=== PATIENT | female | born 2000 | race Caucasian/White ===

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

== ENCOUNTER 2021-05-27 14:38 | Emergency (ER) | payer SELFPAY ==
[~2021-05-27] VITALS: Ht 165.1 cm; Wt 75.0 kg
[2021-05-27] MEDS ORDERED: LORazepam 0.5 MG (ATIVAN) TABLET PO STA (15:12)
--- NOTE | 2021-05-27 15:35 | ED Neurological Problem ---
General Chief Complaint: General Problems/Pain Stated Complaint: TREMORS/NUMBNESS Nursing Triage Note: Pt ambulatory into ER with Phonic Tics x20 Minutes, and intermittent Tingling and Numbness in hands x5 days. Pt is making a dog like bark noise, stuttering, and has body tics as well. Pt has no history of this. Source: patient, family (mom) Exam Limitations: no limitations History of Present Illness Date Seen by Provider: May 27, 2021 Time Seen by Provider: 15:10 Initial Comments Patient to the ER with mom and chief complaint about half an hour prior to her arrival she started experiencing bilateral upper arm extremity tingling numbness in her hands, tremoring, barking tics and spasming of her abdomen wall. Patient states she started Pristiq about 4 months ago and was on the name brand for about a month and for the past 3 months has been tolerating the generic. She says while she was on it she would get 1 or 2 little spasmodic tics like this day but now it is constant, rhythmic, nonsuppressible. She says it is very tiring. For the past couple weeks she has had problems with hives due to an unknown allergen but she suspects it might be her detergent at home. She has been taking a course of prednisone as well as Benadryl several times a day. She took a dose this morning of each. Patient denies any fever chills nausea vomiting diarrhea chest pain abdominal pain. She says it is very tiring constantly spasming with this. Allergies and Home Medications Allergies Coded Allergies: Penicillins (Unverified Allergy, Mild, 07/29/09) Home Medications Cephalexin 500 Mg Tablet, 500 MG PO TID Prescribed by: DENNIS SUE on 05/11/19 4859 Patient Home Medication List Home Medication List Reviewed: Yes Review of Systems Review of Systems Constitutional: No chills, No fever, No malaise, No weakness Eyes: Denies Blindness, Denies Blurred Vision, Denies Drainage Ears, Nose, Mouth, Throat: denies ear pain, denies ear discharge Respiratory: No cough, No dyspnea on exertion Cardiovascular: No chest pain, No palpitations Gastrointestinal: No abdominal pain, No constipation, No diarrhea, No nausea Genitourinary: No discharge, No dysuria Musculoskeletal: No back pain, No joint pain Skin: No pruritus, No rash All Other Systems Reviewed Negative Unless Noted: Yes Past Ntqrzfm-Fmxvic-Vyvqoq Hx Patient Social History Tobacco Use?: No Use of E-Cig and/or Vaping dev: Yes E-Cig or Vaping type used: Nicotine Use of E-Cig and/or Vaping David: Current Someday User Substance use?: No Alcohol Use?: No Pt feels they are or have been: No Immunizations Up To Date PED Vaccines UTD: Yes Influenza Vaccine Up-to-Date: No; Not Current Seasonal Allergies Seasonal Allergies: No Past Medical History Surgeries: Yes (FACIAL SURG) Tonsillectomy Respiratory: No Cardiac: No Neurological: No Reproductive Disorders: No Genitourinary: No Gastrointestinal: No Musculoskeletal: No Endocrine: No HEENT: No Cancer: No Psychosocial: No Integumentary: No Blood Disorders: No Family Medical History No Pertinent Family Hx Physical Exam Vital Signs Vital Signs - First Documented 05/27/21 14:43 Temp 35.6 Pulse 126 Resp 24 B/P (MAP) 157/115 (129) Pulse Ox 98 O2 Delivery Room Air Capillary Refill : Less Than 3 Seconds Height, Weight, BMI Height: 5'7.00" Weight: 170lbs. oz. 77.545093dh; 27.00 BMI Method: General Appearance: WD/WN, mild distress HEENT: PERRL/EOMI, pharynx normal Neck: full range of motion, normal inspection Respiratory: lungs clear, normal breath sounds, no respiratory distress, no accessory muscle use Cardiovascular: normal peripheral pulses, regular rate, rhythm, no edema, no JVD, no murmur Peripheral Pulses: 2+ Radial Pulses (R), 2+ Radial Pulses (L) Gastrointestinal: normal bowel sounds, non tender, soft Neurologic/Psychiatric: alert, oriented x 3, other (Mildly anxious affect, smiling, cooperative good eye contact. Patient has some spasmodic hiccuping sounds that are constant, almost rhythmic, suppressible with breathing maneuvers but not voluntarily.) Crainal Nerves: normal hearing, normal speech, PERRL Coordination/Gait: normal gait Motor/Sensory: no motor deficit, no sensory deficit, other (Endorses paresthesias but has an intact sensation bilateral upper and lower extremities) Reflexes: 1+ Tricep (R), 1+ Tricep (L); 2+ Knee (R), 2+ Knee (L), 2+ Ankle (R), 2+ Ankle (L) Skin: normal color, warm/dry Progress/Results/Core Measures Results/Orders Lab Results Laboratory Tests Test 05/27/21 15:36 Range/Units White Blood Count 8.3 4.3-11.0 10^3/uL Red Blood Count 4.53 3.80-5.11 10^6/uL Hemoglobin 12.8 11.5-16.0 g/dL Hematocrit 38 35-52 % Mean Corpuscular Volume 85 80-99 fL Mean Corpuscular Hemoglobin 28 25-34 pg Mean Corpuscular Hemoglobin Concent 33 32-36 g/dL Red Cell Distribution Width 12.5 10.0-14.5 % Platelet Count 237 130-400 10^3/uL Mean Platelet Volume 9.1 9.0-12.2 fL Immature Granulocyte % (Auto) 1 % Neutrophils (%) (Auto) 85 H 42-75 % Lymphocytes (%) (Auto) 11 L 12-44 % Monocytes (%) (Auto) 4 0-12 % Eosinophils (%) (Auto) 0 0-10 % Basophils (%) (Auto) 0 0-10 % Neutrophils # (Auto) 7.1 1.8-7.8 X 10^3 Lymphocytes # (Auto) 0.9 L 1.0-4.0 X 10^3 Monocytes # (Auto) 0.3 0.0-1.0 X 10^3 Eosinophils # (Auto) 0.0 0.0-0.3 10^3/uL Basophils # (Auto) 0.0 0.0-0.1 10^3/uL Immature Granulocyte # (Auto) 0.0 0.0-0.1 10^3/uL Sodium Level 144 135-145 MMOL/L Potassium Level 3.9 3.6-5.0 MMOL/L Chloride Level 108 H 98-107 MMOL/L Carbon Dioxide Level 20 L 21-32 MMOL/L Anion Gap 16 H 5-14 MMOL/L Blood Urea Nitrogen 10 7-18 MG/DL Creatinine 0.72 0.60-1.30 MG/DL Estimat Glomerular Filtration Rate 104 BUN/Creatinine Ratio 14 Glucose Level 138 H 70-105 MG/DL Calcium Level 9.3 8.5-10.1 MG/DL Corrected Calcium 9.1 8.5-10.1 MG/DL Total Bilirubin 0.3 0.1-1.0 MG/DL Aspartate Amino Transf (AST/SGOT) 15 5-34 U/L Alanine Aminotransferase (ALT/SGPT) 13 0-55 U/L Alkaline Phosphatase 61 40-136 U/L Total Protein 7.7 6.4-8.2 GM/DL Albumin 4.3 3.2-4.5 GM/DL Serum Test, Qualitative NEGATIVE NEGATIVE My Orders Orders - MONTY MEDRANO Lorazepam Tablet (Ativan Tablet) (05/27/21 15:12) Cbc With Automated Diff (05/27/21 15:12) Comprehensive Metabolic Panel (05/27/21 15:12) Hcg,Qualitative Serum (05/27/21 15:12) Chest Pa/Lat (2 View) (05/27/21 15:12) Vital Signs/I&O 05/27/21 14:43 Temp 35.6 Pulse 126 Resp 24 B/P (MAP) 157/115 (129) Pulse Ox 98 O2 Delivery Room Air Blood Pressure Mean: 129 Progress Progress Note #1: Time: 15:39 Progress Note 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 It does calm down when we are testing her eyes and she is focusing on a neurologic exam and returns immediately thereafter. He does not seem to be voluntarily suppressible. It could be consistent with Leeuwenhoek disease or belly dancers dyskinesia. It could be theorized that the Pristiq and recent steroids could be culprits. We will pro bably start tapering her off of that medication. We have also encouraged her to stop taking the Benadryl and steroid. We will give her a milligram of Ativan p.o. and check some basic labs looking for electrolyte disorders, hyper uremia etc. We have reassured her that often these spontaneous tic/movement disorders will resolve just spontaneously over weeks to months. Plan to get a chest x-ray to make sure there is not any obvious radiopaque involvement anywhere along the pathway of the costophrenic nerve. Progress Note #2: Time: 17:03 Progress Note Patient is much more calm and no longer insonating although still having some occasional rhythmic, although didactic instructor diaphragmatic spasms/myoclonus. She says she feels much better. Still mentating normally and has a normal neurologic exam. We discussed with her that we going to give her a prescription for Pristiq 25 mg daily for the next week and then off and to stop taking the steroid. She can still take her Fatuma once or twice a day in addition to Benadryl if her hives return. The Ativan seems to help so were going to send her out with some Ativan tablets and have her follow-up with Yvonne the psychiatrist at [facility] and her primary care doctor. If her symptoms persist for more than 1 to 2 weeks then we have encouraged her to follow-up with a neurologist to be set up through her primary care office. Diagnostic Imaging Diagonstic Imaging: Xray Plain Films/CT/US/NM/MRI: chest Comments NAME: LESTER VALDEZ [facility] REC#: [id number] PT STATUS: REG ER : 2001 PHYSICIAN: MONTY MEDRANO MD ADMIT DATE: 05/27/21/ER Draft Date of Exam:05/27/21 CHEST PA/LAT (2 VIEW) EXAMINATION: Chest 2 view. HISTORY: Diaphragm spasm. COMPARISON: 08/01/2009. FINDINGS: Heart size and pulmonary vasculature are normal. The lungs are clear without consolidation, pleural effusion or pneumothorax. The osseous structures are intact. IMPRESSION: No acute radiographic abnormality in the chest. 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 Decision time for Depature: 17:00 Referrals: KURT GATES MD (PCP/Family) Primary Care Physician Patient Instructions: NO INSTRUCTIONS GIVEN Add. 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 This is a rare, involuntary spasming of the muscles of your diaphragm/abdominal wall. It seems to relax with medicines such as Ativan and will typically resolve spontaneously on its own in a few weeks. Often the source of the problem is never discovered. If it persists for more than a week or 2 then I would recommend follow-up with a neurologist. Follow-up with your primary care doctor in the next week. Start taking Pristiq 25 mg daily for the next week and then go off of it. Stop taking the prednisone. You may continue taking your Fatuma once or twice a day as necessary for itchy hives. You may take 1 tablet of Benadryl every 6 hours as necessary for breakthrough itching although combined with Ativan this may cause more drowsiness. Do not drink alcohol with Ativan. Do not attempt to drive or operate heavy machinery while under the influence of Ativan as it causes drowsiness and may result in a DUI, or worse a wreck. You may take 1/2 to 1 milligram of Ativan every 8 hours as necessary to keep the symptoms under control. Work with your psychiatry team to determine if Pristiq is part of the problem and if you can restart it or a different medication later on. All discharge instructions reviewed with patient and/or family. Voiced understanding. Scripts Desvenlafaxine Succinate (Pristiq ER) 25 Mg Tab.er.24h 25 MG PO DAILY for 7 Days, #7 TAB 0 Refills Prov: MONTY MEDRANO 05/27/21 Lorazepam (Ativan) 0.5 Mg Tablet 0.5-1 MG PO TID PRN for SPASMS for 7 Days, #35 TAB 0 Refills Prov: MONTY MEDRANO 05/27/21 Work/School Note: Work Release Form Date Seen in the Emergency Department: May 27, 2021 Return to Work: May 30, 2021 Restrictions: No Restrictions Copy Copies To 1: LUPE CARRION TITUS J May 27, 2021 15:35
[2021-05-27 15:45] LABS: BASOPHILS % (AUTO) 0 % (0-10); EOSINOPHILS % (AUTO) 0 % (0-10); HEMATOCRIT 38 % (35-52); HEMOGLOBIN 12.8 g/dL (11.5-16.0); LYMPHOCYTES # (AUTO) 0.9 X 10^3 (1.0-4.0); LYMPHOCYTES % (AUTO) 11 % (12-44); MEAN CORPUSCULAR HEMOGLOBIN 28 pg (25-34); MEAN CORPUSCULAR HGB CONC 33 g/dL (32-36); MEAN CORPUSCULAR VOLUME 85 fL (80-99); MEAN PLATELET VOLUME 9.1 fL (9.0-12.2); MONOCYTES # (AUTO) 0.3 X 10^3 (0.0-1.0); MONOCYTES % (AUTO) 4 % (0-12); NEUTROPHILS # (AUTO) 7.1 X 10^3 (1.8-7.8); NEUTROPHILS % (AUTO) 85 % (42-75); PLATELET COUNT 237 10^3/uL (130-400); WHITE BLOOD COUNT 8.3 10^3/uL (4.3-11.0)
--- NOTE | 2021-05-27 15:53 | Diagnostic Imaging Report ---
EXAMINATION: Chest 2 view. HISTORY: Diaphragm spasm. COMPARISON: 08/01/2009. FINDINGS: Heart size and pulmonary vasculature are normal. The lungs are clear without consolidation, pleural effusion or pneumothorax. The osseous structures are intact. IMPRESSION: No acute radiographic abnormality in the chest. Dictated by: Dictated on workstation # [id number]
[2021-05-27 15:57] LABS: ALBUMIN 4.3 GM/DL (3.2-4.5); POTASSIUM 3.9 MMOL/L (3.6-5.0)
[2021-05-27 15:58] LABS: CALCIUM 9.3 MG/DL (8.5-10.1)
[2021-05-27 16:00] LABS: TOTAL PROTEIN 7.7 GM/DL (6.4-8.2)
[2021-05-27 16:02] LABS: BILIRUBIN,TOTAL 0.3 MG/DL (0.1-1.0)
[2021-05-27 16:03] LABS: CREATININE SERUM 0.72 MG/DL (0.60-1.30)
[2021-05-27] MEDS ORDERED: DESV25TA PO (17:13)
[2021-05-27] MEDS ORDERED: LORA-404 PO (17:13)
[2021-05-27 17:27] VITALS: BP 135/80
== END 2021-05-27 17:28 | disposition home or self-care (01) ==
LOC: EDUNIT# 14:38 → ER 14:40
DX: R06.6 Hiccough (principal); G24.9 Dystonia, unspecified; F17.200 Nicotine dependence, unspecified, uncomplicated
CPT/HCPCS: 36415; 71046; 80053; 84703; 85025

== ENCOUNTER 2022-01-01 23:20 | Emergency (ER) | payer OTHER ==
[~2022-01-01] VITALS: Ht 170.1 cm; Wt 81.6 kg
[~2022-01-01 23:20] MED LIST changes: +DESV25TA PO; +LORA-404 PO
[2022-01-01] MEDS ORDERED: EPINEPHrine INJECTION 1 MG/ML AMP ONE (23:32)
--- NOTE | 2022-01-01 23:40 | ED General ---
General Stated Complaint: ALERGIC RXN,THROAT & FACE SWOLLEN Source of Information: Patient Exam Limitations: No Limitations History of Present Illness Date Seen by Provider: Jan 01, 2022 Time Seen by Provider: 23:48 Initial Comments 21-year-old female with past medical history of chronic urticaria for the past 7 months coming in due to allergic reaction. She says about an hour prior to arrival she felt her lips and face swelling and felt like her throat was tightening. Took a Benadryl and then came to the emergency department. She takes 2 Benadryl every morning and is seeing someone to try to figure out what going on with the urticaria. So far is unknown. She is never had an allergic reaction like this. She had several today and did not really change much from her typical routine. Denies any chest pain, abdominal pain, weakness, numbness, headache, vision changes, or any other concerns. She is currently on her period. Allergies and Home Medications Allergies Coded Allergies: Penicillins (Unverified Allergy, Mild, 07/29/09) Patient Home Medication List Home Medication List Reviewed: Yes Cephalexin (Cephalexin) 500 Mg Tablet, 500 MG PO TID Prescribed by: DENNIS SUE on 05/11/192140 Cetirizine HCl (Cetirizine HCl) 10 Mg Tablet, 10 MG PO DAILY Prescribed by: JOSE ALVARENGA on 01/02/22 0514 Desvenlafaxine Succinate (Pristiq ER) 25 Mg Tab.er.24h, 25 MG PO DAILY Prescribed by: MONTY MEDRANO on 05/27/21 171 Epinephrine (Epipen 2-Rafita) 0.3 Mg/0.3 Ml Auto.injct, 0.3 MG IJ Q15M PRN for anaphylaxis Prescribed by: JOSE ALVARENGA on 01/02/22 0505 Famotidine (Pepcid) 20 Mg Tablet, 20 MG PO DAILY Prescribed by: JOSE ALVARENGA on 01/02/22 0514 Lorazepam (Ativan) 0.5 Mg Tablet, 0.5-1 MG PO TID PRN for SPASMS Prescribed by: MONTY MEDRANO on 05/27/21 1714 Review of Systems Review of Systems Constitutional: No chills, No fever EENTM: throat swelling; No blurred vision Respiratory: No cough; short of breath Cardiovascular: No chest pain Gastrointestinal: nausea Genitourinary: no symptoms reported Musculoskeletal: no symptoms reported Skin: rash Psychiatric/Neurological: No Symptoms Reported Hematologic/Lymphatic: No Symptoms Reported Immunological/Allergic: no symptoms reported All Other Systems Reviewed Negative Unless Noted: Yes Past Susbllr-Lvmjro-Pohjnw Hx Patient Social History Substance use?: No Immunizations Up To Date PED Vaccines UTD: Yes Seasonal Allergies Seasonal Allergies: No Past Medical History Surgeries: Yes (FACIAL SURG) Tonsillectomy Respiratory: No Cardiac: No Neurological: No Reproductive Disorders: No Genitourinary: No Gastrointestinal: No Musculoskeletal: No Endocrine: No HEENT: No Cancer: No Psychosocial: No Integumentary: No Blood Disorders: No Family Medical History No Pertinent Family Hx Physical Exam Vital Signs Vital Signs - First Documented 01/01/22 23:30 Temp 36.9 Pulse 86 Resp 20 B/P (MAP) 141/96 (111) Pulse Ox 99 Capillary Refill : Height, Weight, BMI Height: 5'7.00" Weight: 170lbs. oz. 77.236550ln; 27.00 BMI Method: General Appearance: Other (Lips and face swollen) Eyes: Right Eye Other (Right eye with periorbital edema) HEENT: PERRL/EOMI, Normal ENT Inspection, Pharynx Normal Neck: Full Range of Motion, Normal Inspection, Non Tender, Supple Respiratory: Chest Non Tender, Lungs Clear, Normal Breath Sounds, No Accessory Muscle Use, No Respiratory Distress Cardiovascular: Regular Rate, Rhythm, No Edema, Normal Peripheral Pulses Gastrointestinal: Normal Bowel Sounds, Non Tender, Soft; No Distended, No Guarding Back: No CVA Tenderness Extremity: Normal Capillary Refill, Normal Range of Motion, Non Tender, No Calf Tenderness, No Pedal Edema, Other (Urticaria) Neurologic/Psychiatric: Alert, No Motor/Sensory Deficits, Normal Mood/Affect Skin: Warm/Dry, Other (Urticaria across her chest and extremities) Lymphatic: No Adenopathy Progress/Results/Core Measures Suspected Sepsis SIRS Temperature: Pulse: Respiratory Rate: Blood Pressure / Mean: Results/Orders My Orders Orders - JOSE ALVARENGA MD Epinephrine 1 Mg Injection (Adrenalin I (01/01/22 23:32) Epinephrine 1 Mg Injection (Adrenalin I (01/01/22 23:45) Lactated Ringers (Lr 1000 Ml Iv Solution (01/01/22 23:45) Diphenhydramine Injection (Benadryl Inje (01/01/22 23:45) Dexamethasone Injection (Decadron Injec (01/01/22 23:34) Famotidine Injection (Pepcid Injection) (01/01/22 23:45) Epinephrine 1 Mg Injection (Adrenalin I (01/01/22 23:56) Ns (Ivpb) (Sodium C... W/Epinephrine 1 (01/02/22 00:10) Chest 1 View, Ap/Pa Only (01/02/22 00:15) Medications Given in ED Current Medications Medications Dose Ordered Sig/Zurdo Route Start Time Stop Time Status Last Admin Dose Admin Epinephrine HCl 0.3 mg ONCE ONCE IM 01/01/22 23:45 01/01/22 23:46 DC 01/01/22 23:38 0.3 MG Famotidine 20 mg ONCE ONCE IVP 01/01/22 23:45 01/01/22 23:46 DC 01/01/22 23:50 20 MG Vital Signs/I&O 01/01/22 01/02/22 23:30 05:26 Temp 36.9 Pulse 86 91 Resp 20 16 B/P (MAP) 141/96 (111) 116/68 Pulse Ox 99 98 Capillary Refill : Progress Note : Progress Note 21-year-old female with above history coming in due to allergic reaction. ABCs are intact although tenuous. She does have some facial swelling with some voice changes, but clear lung sounds. She was immediately given an IM injection of epinephrine which did help with her urticaria. This was repeated after about 15 minutes given she was feeling somewhat throat tightness. Symptoms me seem to improve but she still feeling some so started on an epinephrine drip. She was also given Decadron, had already taken Benadryl, Pepcid, and IV fluids. I frequently reassessed her airway, and she is tolerating her secretions, and is still talking, and says things seem to have stabilized. For now we will hold off on intubating her. The plan was to admit the patient to the intensive care unit, but every time I reevaluated her she seemed to be rapidly improving more. I discussed with her b ring her into the hospital for observation versus watching her for roughly 6 hours and if she continues to appear well, discharging her from the emergency department. She preferred discharge if possible. I frequently reassessed her, airway continued to improve, eventually her voice completely came back to normal, urticaria went away, and the facial swelling significantly lessened. Last dose of epinephrine was greater than 5 hours ago she has not required any other medications since then. I believe she is stable for discharge with outpatient follow-up. She was sent home with strict return precautions Critical Care Note Critical Care Start Time: 00:10 Stop Time: 02:35 Total Time (minutes) 145 Progress Patient having anaphylaxis requiring repeat doses of epinephrine IM and required frequent reassessment in which I was monitoring her airway and hemodynamics. Departure Impression Primary Impression: Anaphylaxis Qualified Codes: T78.2XXA - Anaphylactic shock, unspecified, initial encounter Disposition: HOME, SELF-CARE Condition: Improved Admissions Decision to Admit/Date: Jan 02, 2022 Time/Decision to Admit Time: 00:15 Departure-Patient Inst. Decision time for Depature: 05:30 Referrals: KURT GATES MD (PCP/Family) Primary Care Physician Patient Instructions: Anaphylaxis Add. Discharge Instructions: You were seen in the emergency department for an allergic reaction that was very severe called anaphylaxis. Sometimes there can be a rebound reaction to this later on. I wrote a prescription for EpiPen's which you should fill. If you feel like your throat is closing, your wheezing, or you have any difficulty breathing and I want you to use the EpiPen and call 911 [address] you to the ER. Please follow-up with your regular doctor to get a referral to an facility maintenance technician. I also sent a prescription for cetirizine (allergy pill in place of the benadryl that is less sedating and tends to do well for hives) and pepcid (also can help with hives). Scripts Famotidine (Pepcid) 20 Mg Tablet 20 MG PO DAILY for 30 Days, #30 TAB Prov: JOSE ALVARENGA MD 01/02/22 Cetirizine HCl (Cetirizine HCl) 10 Mg Tablet 10 MG PO DAILY for 30 Days, #30 TAB Prov: JOSE ALVARENGA MD 01/02/22 Epinephrine (Epipen 2-Rafita) 0.3 Mg/0.3 Ml Auto.injct 0.3 MG IJ Q15M PRN for anaphylaxis, #2 UNITS Prov: JOSE ALVARENGA MD 01/02/22 Work/School Note: School/Childcare Release, Date Seen in the Emergency Department: Jan 02, 2022 Time Dismissed from Emergency Department: 05:06 Return to School: Jan 03, 2022 Restrictions: No Restrictions Work Release Form Date Seen in the Emergency Department: Jan 01, 2022 Return to Work: Jan 03, 2022 Restrictions: No Restrictions JOSE ALVARENGA MD Jan 01, 2022 23:39
[2022-01-01] MEDS ORDERED: LACTATED RINGERS 1,000 ML IV SCH (23:45)
[2022-01-01] MEDS ORDERED: FAMOTIDINE 20MG/2ML IV (PEPCID) IVP ONE (23:45)
[2022-01-01] MEDS ORDERED: EPINEPHrine INJECTION 1 MG/ML AMP IM ONE (23:45)
[2022-01-01] MEDS ORDERED: diphenhydrAMINE 50 MG/ML INJ (BENADRYL) IVP ONE (23:45)
[2022-01-01] MEDS ORDERED: EPINEPHrine INJECTION 1 MG/ML AMP IM STA (23:56)
[2022-01-02] MEDS ORDERED: EPINEPHrine 1 MG INJECTION 4 MG in NS (IVPB) 246 ML IV STA (00:10)
[2022-01-02] MEDS ORDERED: EPIN0.3P3 IJ (05:05)
[2022-01-02] MEDS ORDERED: CETI10TA17 PO (05:14)
[2022-01-02] MEDS ORDERED: FAMO-119 PO (05:14)
[2022-01-02 05:26] VITALS: BP 116/68
--- NOTE | 2022-01-02 06:28 | Diagnostic Imaging Report ---
INDICATION: Shortness of breath COMPARISON: 05/27/2021 FINDINGS: Single view of the chest demonstrates clear lungs bilaterally. The heart is normal. There is no pneumothorax. The osseous structures are normal. IMPRESSION: Negative chest Dictated by: Dictated on workstation # [id number]
== END 2022-01-02 05:27 | disposition home or self-care (01) ==
LOC: EDUNIT# 23:20 → ER 23:23
DX: T78.2XXA Anaphylactic shock, unspecified, initial encounter (principal)
CPT/HCPCS: 71045; 96361; 96372; 96374; 96375

== ENCOUNTER → 2022-02-06 | Outpatient (CLI) | payer OTHER ==
[~2022-02-06] MED LIST changes: +CETI10TA17 PO; +EPIN0.3P3 IJ; +FAMO-119 PO
== END ==
LOC: LAB 14:39
DX: L50.9 Urticaria, unspecified (principal)
CPT/HCPCS: 36415; 86038; 86039; 86329

== ENCOUNTER 2022-07-26 10:55 | Emergency (ER) | payer SELFPAY ==
[~2022-07-26] VITALS: Ht 165 cm; Wt 79.5 kg
[2022-07-26 11:05] VITALS: BP 139/92
[2022-07-26 11:26] LABS: BILIRUBIN,URINE NEGATIVE (NEGATIVE); CLARITY,URINE CLEAR; COLOR,URINE YELLOW; GLUCOSE, URINE (UA) NEGATIVE (NEGATIVE); KETONES,URINE TRACE (NEGATIVE); LEUKOCYTE ESTERASE ,URINE NEGATIVE (NEGATIVE); NITRITE,URINE NEGATIVE (NEGATIVE); PROTEIN,URINE NEGATIVE (NEGATIVE)
[2022-07-26] MEDS ORDERED: KETOROLAC 30 MG/ML VIAL IVP STA (11:32)
[2022-07-26 11:38] LABS: RBC,URINE 25-50 /HPF
--- NOTE | 2022-07-26 11:38 | ED GU-Female ---
General Chief Complaint: Abdominal/GI Problems Stated Complaint: ABD PAIN/VOMITING Nursing Triage Note: Pt states that she has a hx of ovarian cysts and has been off of control for the past year due to intolerance. She started having bilateral lower abd pain yesterday at 1300. Describes as constant cramping. She had diarrhea yesterday and took immodium, but has not taken anything for pain. History of Present Illness Date Seen by Provider: Jul 26, 2022 Time Seen by Provider: 11:05 Initial Comments 21-year-old female presents for bilateral lower abdominal pain, nausea and vomiting, diarrhea yesterday. She reports a history of ovarian cysts and endometriosis. Her last menstrual cycle was mid June, she reports there irregular. She is no longer on control due to a rash that was caused by taking the medicine. She is no longer seeing an [facility] as she was a patient of Dr. Joe, she plans to set up with Zulema White APRN. She rates her pain at a 7/10 presently, she has not taken Tylenol or ibuprofen. She denies any dysuria, hematuria or flank pain. Timing/Duration: yesterday Severity/Quality: moderate Location: RLQ, LLQ Radiation: none Associated Symptoms: abdominal pain; No dysuria, No fever/chills, No lower back pain; nausea/vomiting; No urinary frequency Allergies and Home Medications Allergies Coded Allergies: Penicillins (Unverified Allergy, Mild, 07/29/09) Patient Home Medication List Home Medication List Reviewed: Yes Cephalexin (Cephalexin) 500 Mg Tablet, 500 MG PO TID Prescribed by: DENNIS SUE on 05/11/192140 Cetirizine HCl (Cetirizine HCl) 10 Mg Tablet, 10 MG PO DAILY Prescribed by: JOSE ALVARENGA on 01/02/22 0514 Desvenlafaxine Succinate (Pristiq ER) 25 Mg Tab.er.24h, 25 MG PO DAILY Prescribed by: MONTY MEDRANO on 05/27/21 171 Epinephrine (Epipen 2-Rafita) 0.3 Mg/0.3 Ml Auto.injct, 0.3 MG IJ Q15M PRN for anaphylaxis Prescribed by: JOSE ALVARENGA on 01/02/22 0505 Famotidine (Pepcid) 20 Mg Tablet, 20 MG PO DAILY Prescribed by: JOSE ALVARENGA on 01/02/22 0514 Lorazepam (Ativan) 0.5 Mg Tablet, 0.5-1 MG PO TID PRN for SPASMS Prescribed by: MONTY MEDRANO on 05/27/21 1714 Nitrofurantoin Monohyd/M-Cryst (Macrobid 100 mg Capsule) 100 Mg Capsule, 1 TAB PO BID Prescribed by: DENNIS SUE on 07/26/22 1346 Ondansetron (Ondansetron Odt) 4 Mg Tab.rapdis, 4 MG PO Q6H PRN for NAUSEA/VOMITING Prescribed by: DENNIS SUE on 07/26/22 1349 Review of Systems Review of Systems Constitutional: no symptoms reported, see HPI Gastrointestinal: see HPI, abdominal pain, diarrhea (yesterday), nausea, vomiting Genitourinary: no symptoms reported, see HPI : Yes (neg HCG) LMP: Jun 26, 2022 Musculoskeletal: no symptoms reported, see HPI All Other Systemes Reviewed Negative Unless Noted: Yes Past Nvsqnur-Qxzvng-Jycwpo Hx Patient Social History Tobacco Use?: No Use of E-Cig and/or Vaping dev: Yes E-Cig or Vaping type used: Nicotine Use of E-Cig and/or Vaping David: Current Everyday User Substance use?: No Alcohol Use?: No Pt feels they are or have been: No Immunizations Up To Date PED Vaccines UTD: Yes Seasonal Allergies Seasonal Allergies: No Past Medical History Surgeries: Yes (FACIAL SURG) Tonsillectomy Respiratory: No Cardiac: No Neurological: No Last Menstrual Period: May 29, 2022 Reproductive Disorders: No Genitourinary: No Gastrointestinal: No Musculoskeletal: No Endocrine: No HEENT: No Cancer: No Psychosocial: No Integumentary: No Blood Disorders: No Family Medical History Reviewed Nursing Family Hx No Pertinent Family Hx Physical Exam Vital Signs Vital Signs - First Documented 07/26/22 11:05 Temp 36.4 Pulse 96 Resp 22 B/P (MAP) 139/92 (108) Pulse Ox 98 O2 Delivery Room Air Capillary Refill : Less Than 3 Seconds Height, Weight, BMI Height: 5'7.00" Weight: 170lbs. oz. 77.644300jw; 29.00 BMI Method: General Appearance: WD/WN, no apparent distress Neck: non-tender, full range of motion, supple, normal inspection Cardiovascular: normal peripheral pulses, regular rate, rhythm Respiratory: chest non-tender, lungs clear, normal breath sounds Gastrointestinal: normal bowel sounds, soft; No distended, No guarding, No rebound; tenderness (RLQ and LLQ) Extremities: normal range of motion, non-tender, normal inspection Neurologic/Psychiatric: no motor/sensory deficits, alert, normal mood/affect, oriented x 3 Skin: normal color, warm/dry Progress/Results/Core Measures Suspected Sepsis SIRS Temperature: Pulse: 96 Respiratory Rate: 22 Laboratory Tests 07/26/22 11:43: White Blood Count 10.8 Blood Pressure 139 /92 Mean: 108 Laboratory Tests 07/26/22 11:43: Creatinine 0.73, Platelet Count 188, Total Bilirubin 0.4 Results/Orders Lab Results Laboratory Tests Test 07/26/22 11:23 07/26/22 11:43 Range/Units Urine Color YELLOW Urine Clarity CLEAR Urine pH 8.0 5-9 Urine Specific [place] 1.020 1.016-1.022 Urine Protein NEGATIVE NEGATIVE Urine Glucose (UA) NEGATIVE NEGATIVE Urine Ketones TRACE H NEGATIVE Urine Nitrite NEGATIVE NEGATIVE Urine Bilirubin NEGATIVE NEGATIVE Urine Urobilinogen 0.2 < = 1.0 MG/DL Urine Leukocyte Esterase NEGATIVE NEGATIVE Urine RBC (Auto) 3+ H NEGATIVE Urine RBC 25-50 H /HPF Urine WBC 2-5 /HPF Urine Squamous Epithelial Cells 0-2 /HPF Urine Crystals NONE /LPF Urine Bacteria FEW H /HPF Urine Casts NONE /LPF Urine Mucus SMALL H /LPF Urine Culture Indicated YES White Blood Count 10.8 4.3-11.0 10^3/uL Red Blood Count 4.72 3.80-5.11 10^6/uL Hemoglobin 13.0 11.5-16.0 g/dL Hematocrit 39 35-52 % Mean Corpuscular Volume 82 80-99 fL Mean Corpuscular Hemoglobin 28 25-34 pg Mean Corpuscular Hemoglobin Concent 34 32-36 g/dL Red Cell Distribution Width 12.1 10.0-14.5 % Platelet Count 188 130-400 10^3/uL Mean Platelet Volume 10.0 9.0-12.2 fL Immature Granulocyte % (Auto) 0 % Neutrophils (%) (Auto) 80 H 42-75 % Lymphocytes (%) (Auto) 13 12-44 % Monocytes (%) (Auto) 7 0-12 % Eosinophils (%) (Auto) 0 0-10 % Basophils (%) (Auto) 0 0-10 % Neutrophils # (Auto) 8.6 H 1.8-7.8 10^3/uL Lymphocytes # (Auto) 1.4 1.0-4.0 10^3/uL Monocytes # (Auto) 0.7 0.0-1.0 10^3/uL Eosinophils # (Auto) 0.0 0.0-0.3 10^3/uL Basophils # (Auto) 0.0 0.0-0.1 10^3/uL Immature Granulocyte # (Auto) 0.0 0.0-0.1 10^3/uL Sodium Level 141 135-145 MMOL/L Potassium Level 3.8 3.6-5.0 MMOL/L Chloride Level 108 H 98-107 MMOL/L Carbon Dioxide Level 24 21-32 MMOL/L Anion Gap 9 5-14 MMOL/L Blood Urea Nitrogen 10 7-18 MG/DL Creatinine 0.73 0.60-1.30 MG/DL Estimat Glomerular Filtration Rate 121 BUN/Creatinine Ratio 14 Glucose Level 101 70-105 MG/DL Calcium Level 9.5 8.5-10.1 MG/DL Corrected Calcium 9.3 8.5-10.1 MG/DL Total Bilirubin 0.4 0.1-1.0 MG/DL Aspartate Amino Transf (AST/SGOT) 18 5-34 U/L Alanine Aminotransferase (ALT/SGPT) 7 0-55 U/L Alkaline Phosphatase 66 40-136 U/L C-Reactive Protein High Sensitivity 0.29 0.00-0.50 MG/DL Total Protein 7.2 6.4-8.2 GM/DL Albumin 4.3 3.2-4.5 GM/DL My Orders Orders - DENNIS SUE Urine Bedside (07/26/22 11:16) Ua Culture If Indicated (07/26/22 11:16) Cbc With Automated Diff (07/26/22 11:32) Comprehensive Metabolic Panel (07/26/22 11:32) Hs C Reactive Protein (07/26/22 11:32) Ed Iv/Invasive Line Start (07/26/22 11:32) Ns Iv 1000 Ml (Sodium Chloride 0.9%) (07/26/22 11:45) Ondansetron Injection (Zofran Injectio (07/26/22 11:45) Ketorolac Injection (Toradol Injection) (07/26/22 11:32) Urine Culture (07/26/22 11:23) Us Non Ob Pelvis Comp/Transvag (07/26/22 11:59) Medications Given in ED Current Medications Medications Dose Ordered Sig/Zurdo Route Start Time Stop Time Status Last Admin Dose Admin Ondansetron HCl 4 mg ONCE ONCE IVP 07/26/22 11:45 07/26/22 11:46 DC 07/26/22 11:45 4 MG Vital Signs/I&O 07/26/22 07/26/22 07/26/22 11:05 11:45 12:00 Temp 36.4 Pulse 96 82 86 Resp 22 18 B/P (MAP) 139/92 (108) 131/79 (96) 128/67 (87) Pulse Ox 98 96 O2 Delivery Room Air Room Air Capillary Refill : Less Than 3 Seconds Blood Pressure Mean: 108 Progress Note : Time: 11:05 Progress Note Patient seen and evaluated, will obtain labs, NS 1 L per IV, Zofran 4 mg and T oradol 30 mg IV, and follow-up. 1140 will obtain US 1230 patient reports pain and nausea has improved. Awaiting US. 1310 patient to US. 1345 ultrasound results reviewed with the patient. She continues to report improvement in her symptoms. Discharge instructions and return follow-up reviewed. Diagnostic Imaging Diagonstic Imaging: Ultrasound Plain Films/CT/US/NM/MRI: abdomen Comments NAME: LE[facility] VALDEZ [facility] REC#: [id number] PT STATUS: DEP ER : 2001 PHYSICIAN: DENNIS SUE ADMIT DATE: 07/26/22/ER Draft Date of Exam:07/26/22 US NON OB PELVIS COMP/TRANSVAG PROCEDURE: Pelvic comp/transvaginal sonogram. TECHNIQUE: Complete transabdominal and transvaginal pelvic ultrasound was performed. In addition, limited pelvic Doppler was performed. INDICATION: Ovarian cyst and pelvic pain. The uterus is retroverted measuring 7.5 x 4.3 x 5.5 cm. Endometrium is 9 mm in thickness. No myometrial mass is detected. The right ovary measures 3.2 x 2.4 x 2.9 cm and the left ovary measures 4.0 x 2.7 x 3.1 cm. There is a left ovarian cyst measuring 3.4 x 2.8 cm. There is blood flow to the ovaries. There is trace free fluid in the posterior cul-de-sac. IMPRESSION: 3.4 cm left ovarian cyst. The study is otherwise unremarkable. Dictated on workstation # [id number] Dict: 07/26/22 1420 Trans: 07/26/22 1424 [facility] [id number] Interpreted by: PILY HART MD Electronically signed by: Reviewed: Reviewed by Me Departure Impression Primary Impression: Abdominal pain Qualified Codes: R10.30 - Lower abdominal pain, unspecified Additional Impressions: Ovarian cyst Qualified Codes: N83.201 - Unspecified ovarian cyst, right side; N83.202 - Unspecified ovarian cyst, left side UTI (urinary tract infection) Qualified Codes: N30.01 - Acute cystitis with hematuria Disposition: HOME, SELF-CARE Condition: Improved Departure-Patient Inst. Decision time for Depature: 13:00 Referrals: NO,LOCAL PHYSICIAN (PCP) Primary Care Physician ZULEMA WHITE Patient Instructions: Ovarian Cyst (DC), Urinary Tract Infection, Adult (DC) Add. Discharge Instructions: Alternate Tylenol 650 mg and Ibuprofen 600 mg every 4 hours for Pain. Take Zofran every 6-8 hours for nausea Take antibiotics for UTI. Increase water intake, 16 oz every 2 hours while awake. Schedule follow up with Zulema White APRN. Return to the Emergency Dept for new, urgent healthcare problems. All discharge instructions reviewed with patient and/or family. Voiced understanding. Scripts Ondansetron (Ondansetron Odt) 4 Mg Tab.rapdis 4 MG PO Q6H PRN for NAUSEA/VOMITING, #8 TAB 0 Refills Prov: DENNIS SUE 07/26/22 Nitrofurantoin Monohyd/M-Cryst (Macrobid 100 mg Capsule) 100 Mg Capsule 1 TAB PO BID, #10 CAP 0 Refills Prov: DENNIS SUE 07/26/22 Copy Copies To 1: ZULEMA WHITE AMY ARNP Jul 26, 2022 11:37
[2022-07-26 11:39] LABS: BACTERIA,URINE FEW /HPF; SQUAMOUS EPITHELIAL CELL,UR 0-2 /HPF
[2022-07-26] MEDS ORDERED: NS IV 1000 ML 1,000 ML IV SCH (11:45)
[2022-07-26] MEDS ORDERED: ONDANSETRON 4 MG/2 ML (SDV) Z0FRAN IVP ONE (11:45)
[2022-07-26 11:46] LABS: BASOPHILS % (AUTO) 0 % (0-10); EOSINOPHILS % (AUTO) 0 % (0-10); HEMATOCRIT 39 % (35-52); LYMPHOCYTES # (AUTO) 1.4 10^3/uL (1.0-4.0); LYMPHOCYTES % (AUTO) 13 % (12-44); MEAN CORPUSCULAR HEMOGLOBIN 28 pg (25-34); MEAN CORPUSCULAR HGB CONC 34 g/dL (32-36); MEAN CORPUSCULAR VOLUME 82 fL (80-99); MONOCYTES # (AUTO) 0.7 10^3/uL (0.0-1.0); MONOCYTES % (AUTO) 7 % (0-12); NEUTROPHILS # (AUTO) 8.6 10^3/uL (1.8-7.8); NEUTROPHILS % (AUTO) 80 % (42-75); PLATELET COUNT 188 10^3/uL (130-400); WHITE BLOOD COUNT 10.8 10^3/uL (4.3-11.0)
[2022-07-26 12:00] LABS: ALBUMIN 4.3 GM/DL (3.2-4.5)
[2022-07-26 12:01] LABS: POTASSIUM 3.8 MMOL/L (3.6-5.0)
[2022-07-26 12:02] LABS: CALCIUM 9.5 MG/DL (8.5-10.1)
[2022-07-26 12:03] LABS: TOTAL PROTEIN 7.2 GM/DL (6.4-8.2)
[2022-07-26 12:05] LABS: BILIRUBIN,TOTAL 0.4 MG/DL (0.1-1.0)
[2022-07-26 12:07] LABS: CREATININE SERUM 0.73 MG/DL (0.60-1.30)
[2022-07-26] MEDS ORDERED: NITR-65 PO (13:46)
[2022-07-26] MEDS ORDERED: ONDA4TAB11 PO (13:49)
--- NOTE | 2022-07-26 14:24 | Diagnostic Imaging Report ---
PROCEDURE: Pelvic comp/transvaginal sonogram. TECHNIQUE: Complete transabdominal and transvaginal pelvic ultrasound was performed. In addition, limited pelvic Doppler was performed. INDICATION: Ovarian cyst and pelvic pain. The uterus is retroverted measuring 7.5 x 4.3 x 5.5 cm. Endometrium is 9 mm in thickness. No myometrial mass is detected. The right ovary measures 3.2 x 2.4 x 2.9 cm and the left ovary measures 4.0 x 2.7 x 3.1 cm. There is a left ovarian cyst measuring 3.4 x 2.8 cm. There is blood flow to the ovaries. There is trace free fluid in the posterior cul-de-sac. IMPRESSION: 3.4 cm left ovarian cyst. The study is otherwise unremarkable. Dictated by: Dictated on workstation # [id number]
== END 2022-07-26 13:56 | disposition home or self-care (01) ==
LOC: EDUNIT# 10:55 → ER 10:58
DX: N39.0 Urinary tract infection, site not specified (principal); N83.202 Unspecified ovarian cyst, left side; F17.290 Nicotine dependence, other tobacco product, uncomplicated; Z28.310 Unvaccinated for COVID-19
CPT/HCPCS: 36415; 76830; 76856; 80053; 81000; 84703; 85025; 86141; 87088